=== PATIENT | male | born 1970 | race Caucasian/White ===

== ENCOUNTER 2017-08-11 12:19 | Emergency (ER) | payer BC, SELFPAY ==
[2017-08-11 12:21] VITALS: BP 195/81; PULSE 90; RESP 18; TEMP 36.7; O2SAT 95; BMI 46.5
--- NOTE | 2017-08-11 14:01 | ED.VISSUMM ---
- ER Visit Summary Date of Service: 08/11/17 Chief Complaint: [] Right upper lobe dental pain for a few days believes he cracked the tooth History of Present Illness: The patient is a 47 M [] diabetes that has been stable he indicates he basically thinks he may have cracked a right upper tooth he has some swelling in the gumline adjacent to that tooth, he is scheduled to obtain dental services insurance next week no fever no cough no direct trauma otherwise his health has been very good Physical Examination: [] Signs are unremarkable he does have some dental decay involving the right upper teeth he thinks may be one of the teeth completely fell out of his socket 1 of the teeth looks like he may have a fracture to it there is some minimal swelling to the adjacent outer gumline. The face is unremarkable there is no swelling extra muscles are full the oral cavity is otherwise unremarkable floor the mouth and tongue are normal breathing swallowing normal neck supple no adenopathy the rest exam negative Test Results: [] Emergency Department Course and Treatment: [] he cannot take penicillin he has had clindamycin in the past to be started on clindamycin Napros Humphreys as rescue medicine and he understands that he must follow-up with dental services to get this condition managed Treatment Plan: [] Disposition: [] Stable home Impression: [] Dental decay with gumline infection This note was generated with [employer] dictation software. It may contain incorrect words, spelling, and punctuation that were not noted in review of the chart prior to signing ED Disposition - Plan for ED Patient: Chief Complaint: Dental Referrals: David Patel MD [Primary Care Provider] -
--- NOTE | 2017-08-11 14:03 | ED.DEP ---
ED Disposition - Plan for ED Patient: Chief Complaint: Dental Instructions: ED Cavity Dental, ED Abscess Dental Prescriptions: Hydrocodone Bitart/Apap 5-325 [[place] 5/325] 1 tab PO QHS #5 tab Naproxen [Naprosyn] 500 mg PO BID PRN #20 tab Clindamycin HCl [Cleocin] 300 mg PO Q6H #40 cap Referrals: David Patel MD [Primary Care Provider] -
--- NOTE | 2017-08-11 14:07 | DCINST.ED_ITS ---
ED Disposition - Plan for ED Patient: Chief Complaint: Dental Instructions: ED Cavity Dental, ED Abscess Dental Prescriptions: Hydrocodone Bitart/Apap 5-325 [[place] 5/325] 1 tab PO QHS #5 tab Naproxen [Naprosyn] 500 mg PO BID PRN #20 tab Clindamycin HCl [Cleocin] 300 mg PO Q6H #40 cap Referrals: David Patel MD [Primary Care Provider] -
== END 2017-08-11 14:23 | disposition home or self-care (01) ==
PROVIDERS: Emergency Provider Emergency Medicine; Family Provider Family Medicine; PCP Family Medicine
DX: K02.9 Dental caries, unspecified (principal); K05.10 Chronic gingivitis, plaque induced; E11.9 Type 2 diabetes mellitus without complications; Z79.84 Long term (current) use of oral hypoglycemic drugs
CPT/HCPCS: 99282

== ENCOUNTER 2018-08-26 17:53 | Emergency (ER) | payer OTHER, BC, SELFPAY ==
[2018-08-26 17:54] VITALS: BP 162/103; PULSE 94; RESP 18; TEMP 35.8; O2SAT 97; BMI 45.8
--- NOTE | 2018-08-26 18:02 | ED.RN ---
azar from [facility] contacted by this rn to see pt for workers comp.
--- NOTE | 2018-08-26 18:29 | ED.DCSUM_ITS ---
- ER Visit Summary Date of Service: 08/26/18 Chief Complaint: Left hand laceration History of Present Illness: The patient is a 48 M presenting with laceration to left hand. This occurred earlier today at work. He states he cut his hand on a piece of countertop. No other injury. Last tetanus is unknown. Physical Examination: Vitals are stable. Patient is afebrile. Alert no acute distress. HEENT exam is unremarkable. Neck is supple. Lungs are clear and equal bilaterally. Heart is regular rate and rhythm. Extremities 4 cm left palmar laceration, tendon function intact. Normal cap refill. Skin is warm and dry. No focal neurologic deficit. Remainder of exam is unremarkable. Emergency Department Course and Treatment: Patient was given tetanus IM. Laceration was irrigated with saline. Anesthetized with lidocaine. 5, 5-0 simple sutures were placed. Patient tolerated this well. Advised wound care instructions. He is given Keflex. He is advised follow-up with [facility]. Advised return to ED if worsening complaints. Disposition: Discharge home Impression: Left hand laceration, laceration repair This note was generated with [employer] dictation software. It may contain incorrect words, spelling, and punctuation that were not noted in review of the chart prior to signing ED Disposition - Plan for ED Patient: Instructions: ED Laceration Hand Prescriptions: Cephalexin [Keflex] 500 mg PO Q6 #40 capsule Referrals: [facility] [GROUP OF PHYSICIANS] - David Patel MD [Primary Care Provider] -
--- NOTE | 2018-08-26 18:30 | DCINST.ED_ITS ---
ED Disposition - Plan for ED Patient: Instructions: ED Laceration Hand Referrals: David Patel MD [Primary Care Provider] - [facility] [GROUP OF PHYSICIANS] -
[2018-08-26] MEDS: Diphth,Pertuss(Acell),Tet Vac 0.5 ML Vial IM (19:22)
--- NOTE | 2018-08-26 19:25 | ED.DEP ---
ED Disposition - Plan for ED Patient: Instructions: ED Laceration Hand Prescriptions: Cephalexin [Keflex] 500 mg PO Q6 #40 capsule Referrals: [facility] [GROUP OF PHYSICIANS] - David Patel MD [Primary Care Provider] -
[2018-08-26] MEDS: Cephalexin 250 MG Capsule 500 MG PO (19:33)
== END 2018-08-26 19:43 | disposition home or self-care (01) ==
LOC: ED 18:58
PROVIDERS: Emergency Provider Emergency Medicine; Family Provider Family Medicine; PCP Family Medicine
DX: S61.412A Laceration without foreign body of left hand, initial encounter (principal); Z23 Encounter for immunization; W26.8XXA Contact with other sharp object(s), not elsewhere classified, initial encounter; Y93.89 Activity, other specified; Y92.89 Other specified places as the place of occurrence of the external cause; Y99.0 Civilian activity done for income or pay
CPT/HCPCS: 12002; 90471; 90715; 99284

== ENCOUNTER 2018-08-30 16:47 | Emergency (ER) | payer BC, SELFPAY ==
[2018-08-30 16:48] VITALS: BP 163/96; PULSE 76; RESP 16; TEMP 37.1; O2SAT 96; BMI 56.2
--- NOTE | 2018-08-30 17:40 | RAD_ITS ---
STUDY: X-RAY - RIGHT SHOULDER REASON FOR EXAM: Male, 48 years old. Fall with shoulder pain TECHNIQUE: 4 view(s) of the shoulder. COMPARISON: None. FINDINGS: Normal glenohumeral articulation. Normal acromioclavicular joint. Normal acromion. Normal humeral head and visualized proximal humerus. The soft tissue structures are unremarkable. Normal visualized pulmonary apex. RAD/Shoulder min 2 Views IMPRESSION: Normal x-ray examination of the shoulder. Electronically Signed: Chintan Carney DO at 18:20 EST Tel , Service support ,
--- NOTE | 2018-08-30 18:29 | ED.VISSUMM ---
- ER Visit Summary Date of Service: 08/30/18 Chief Complaint: Right shoulder pain History of Present Illness: The patient is a 48 M presenting with right shoulder pain. Patient states he fell approximately 1 hour prior to arrival. He states he slipped on a hill and fell onto his right side. He complains of right shoulder pain. He did not hit his head or lose consciousness. He did not take any medication prior to arrival. No other complaints. Physical Examination: Vitals are stable. Patient is afebrile. Alert no acute distress. HEENT exam is unremarkable. Neck is nontender. Lungs are clear and equal bilaterally. Heart is regular rate and rhythm. Extremities diffuse right shoulder tenderness with painful range of motion. Neurovascularly intact distally. Skin is warm and dry. No focal neurologic deficit. Remainder of exam is unremarkable. Emergency Department Course and Treatment: X-ray right shoulder shows no acute process. He was given morphine, Zofran IM. He was given a sling and advised range of motion exercises. Advised to follow up with his primary care physician. Advised return to ED if worsening complaints. Disposition: Discharge home Impression: Right shoulder injury This note was generated with [employer] dictation software. It may contain incorrect words, spelling, and punctuation that were not noted in review of the chart prior to signing ED Disposition - Plan for ED Patient: Referrals: David Patel MD [Primary Care Provider] -
--- NOTE | 2018-08-30 18:31 | ED.DEP ---
ED Disposition - Plan for ED Patient: Instructions: ED Sprain Shoulder Prescriptions: Naproxen [Naprosyn] 500 mg PO BID PRN #20 tablet Referrals: David Patel MD [Primary Care Provider] -
[2018-08-30] MEDS: morphine 8 MG/ML Syringe IM (18:50)
[2018-08-30] MEDS: Ondansetron 4 MG/2 ML Vial IM (18:50)
[2018-08-30 19:11] VITALS: BP 162/90; PULSE 72; RESP 19; O2SAT 95
== END 2018-08-30 19:12 | disposition home or self-care (01) ==
LOC: ED 17:47
PROVIDERS: Emergency Provider Emergency Medicine; Family Provider Family Medicine; PCP Family Medicine
DX: S49.91XA Unspecified injury of right shoulder and upper arm, initial encounter (principal); W01.0XXA Fall on same level from slipping, tripping and stumbling without subsequent striking against object, initial encounter; Y93.01 Activity, walking, marching and hiking; Y92.89 Other specified places as the place of occurrence of the external cause; Y99.8 Other external cause status
CPT/HCPCS: 73030; 96372; 99283; J2405

== ENCOUNTER 2020-09-28 21:20 | Emergency (ER) | payer BC, SELFPAY ==
[2018-09-02 17:22] VITALS: BMI 56.2
[2020-09-28 21:21] VITALS: BP 156/85; PULSE 99; RESP 20; TEMP 36.1; O2SAT 95; BMI 43.8
--- NOTE | 2020-09-28 21:56 | ED.DEP ---
ED Disposition - Plan for ED Patient: Instructions: ED Tick Bite, Abx Tx Prescriptions: Doxycycline 100 mg PO BID #28 capsule Transmission Status: Pending to [facility] Referrals: David Patel MD [Primary Care Provider] -
--- NOTE | 2020-09-28 22:06 | ED.VISSUMM ---
- ER Visit Summary Date of Service: 09/28/20 Chief Complaint: Left leg tick bite History of Present Illness: The patient is a 50 M presenting after tick bite to left leg. Patient states he noticed a tick to his left posterior thigh this morning. He is not sure when the tick attached. He was able to remove the tick. He states later he noticed a red ring around the area. He denies fever. Denies other complaints. Physical Examination: Vitals are stable. Patient is afebrile. Alert no acute distress. HEENT exam is unremarkable. Neck is supple. Lungs are clear and equal bilaterally. Heart is regular rate and rhythm. Abdomen is soft nontender Extremities: Left posterior thigh small circular ring erythema, no fluctuance. No palpable foreign body Skin is warm and dry. No focal neurologic deficit. Remainder of exam is unremarkable. Emergency Department Course and Treatment: Patient was given doxycycline p.o. Advised to follow-up with his primary care physician. Advised return to ED for worsening complaints. Disposition: Discharge home Impression: Erythema migrans This note was generated with [employer] dictation software. It may contain incorrect words, spelling, and punctuation that were not noted in review of the chart prior to signing ED Disposition - Plan for ED Patient: Instructions: ED Tick Bite, Abx Tx Prescriptions: Doxycycline 100 mg PO BID #28 capsule Transmission Status: Received by [facility] Referrals: David Patel MD [Primary Care Provider] -
[2020-09-28] MEDS: Doxycycline 100 MG CAPSULE PO (22:08)
== END 2020-09-28 22:12 | disposition home or self-care (01) ==
LOC: ED 22:03
PROVIDERS: Emergency Provider Emergency Medicine; PCP Family Medicine
DX: A26.0 Cutaneous erysipeloid (principal)
CPT/HCPCS: 99283

== ENCOUNTER 2022-03-24 19:35 | Emergency (ER) | payer OTHER, SELFPAY ==
[2022-03-24 19:36] VITALS: BP 155/83; PULSE 87; RESP 16; TEMP 36.6; O2SAT 98; BMI 43.0
--- NOTE | 2022-03-24 20:21 | ED.VIS.DENTA ---
HPI History of Present Illness Chief Complaint: Dental Informant: patient Onset/Context/Timing Onset: Weeks (1.5) Context: Gradual Onset Timing: Continuous Quality: Aching Location: Right upper molars Worsened by: Chewing, biting Relieved by: - (Nothing) Associated Symptoms Assocated Symptom - Dental: jaw swelling, face swelling and cold sensitivity; Negative for fever or hot sensitivity Narrative Narrative: Patient presents with right upper dental pain that has been getting worse over the past 1-1/2 weeks. Patient states it is constantly getting worse. Patient describes it as aching. Patient states it is worse with chewing and biting. Patient admits to some swelling of his jaw and face. Patient also admits to cold sensitivity. Patient denies any fevers or chills. Patient denies any difficulty breathing or difficulty swallowing. Patient states he is in between dentist at this time. PFSH [facility] Medical History Arthritis Chronic neck and back pain Diabetes Knee pain Shoulder pain Tendon pain Home Medications cephalexin 500 mg capsule 500 mg PO Q6 #40 caps 08/26/18 [Rx Last Taken Unknown] naproxen 500 mg tablet 500 mg PO BID PRN #20 tabs 08/30/18 [Rx Last Taken Unknown] doxycycline monohydrate 100 mg capsule 100 mg PO BID #28 CAPSULES 09/28/20 [Rx Last Taken Unknown] clindamycin HCl 300 mg capsule (Cleocin HCl) 300 mg PO Q6H #40 CAPSULES 03/24/22 [Rx Last Taken Unknown] Allergy/AdvReac Type Severity Reaction Status Date / Time Penicillins Allergy Shortness Verified 03/24/22 19:35 of breath Family History (Updated 09/02/18 @ 17:22 by Beth Sutton) Other Diabetes Surgical History H/O right knee surgery Social History Smoking Status: Never smoker ROS ROS ED Constitutional Constitutional ED: Denies chills or fever(s) Eyes Eyes: Denies blurry vision or change in vision ENT ENT ED: Denies rhinorrhea or sore throat Cardiovascular Cardiovascular: Denies chest pain or palpitations Respiratory/Chest Respiratory/Chest: Denies cough or dyspnea Gastrointestinal Gastrointestinal: Denies nausea or vomiting Genitourinary Genitourinary ED: Denies dysuria or hematuria Musculoskeletal Musculoskeletal: Reports neck pain; Denies back pain Integumentary Denies abscess or rash Neurologic Neurologic: Reports headache(s); Denies weakness Allergic/Immunologic Allergic/Immunologic ED: Denies mouth swelling or urticaria EXAM Physical Exam Const Vital Signs: 03/24/22 19:36 Temperature 97.8 F Temperature Source Temporal Pulse Rate 87 Respiratory Rate 16 Blood Pressure 155/83 H Blood Pressure Mean 107 Pulse Ox 98 Oxygen Delivery Method Room Air Positive well nourished and well developed General Appearance ED: well developed and NAD HEENT Mouth ED: Yes oral and palatal mucosa normal Mouth: oral and palatal mucosa normal Teeth and Gingiva: caries Throat: posterior oropharynx normal Neck supple and no JVD General: normal visual inspection; Negative for anterior neck swelling, tenderness or submandibular swelling Neuro oriented x3, CN's II-XII intact bilaterally, moves all extremities, no focal motor deficits and no sensory deficits noted Sensorium / Orientation: alert Motor Exam: strength 5/5 throughout Psych mental status grossly normal MDM MDM MDM Narrative Medical decision making narrative: Patient was given a dose of clindamycin here. Patient was given a prescription for clindamycin. Patient was instructed to follow-up with his dentist in 5 to 7 days. Patient was instructed to return if worse in any way. Patient understood and was agreeable with the plan. All questions were answered. Discharge Plan Triage Chief Complaint: Dental ED Provider: Oliver Cox Dx/Rx/DC Orders Clinical Impression: Infected dental caries, Odontalgia Instructions: ED Dental Pain, ED Dental Cavity Prescriptions: New clindamycin HCl [Cleocin HCl] 300 mg capsule 300 mg PO Q6H Qty: 40 0RF No Action cephalexin 500 MG capsule 500 mg PO Q6 Qty: 40 0RF naproxen 500 MG tablet 500 mg PO BID PRN Qty: 20 0RF doxycycline monohydrate 100 MG capsule 100 mg PO BID Qty: 28 0RF Primary Care Provider: David Patel Referrals: David Patel MD [Primary Care Provider] - 5-7 Days DentistTammy [STAFF PHYSICIAN] - 5-7 Days Disposition Disposition: Home, Self Care
[2022-03-24] MEDS: Clindamycin HCl 150 MG Capsule 300 MG PO (20:31)
== END 2022-03-24 20:33 | disposition home or self-care (01) ==
PROVIDERS: Emergency Provider Emergency Medicine; PCP Family Medicine; Visit Provider Emergency Medicine
DX: K02.9 Dental caries, unspecified (principal); K08.89 Other specified disorders of teeth and supporting structures
CPT/HCPCS: 99282

== ENCOUNTER 2023-10-27 14:47 | Emergency (ER) | payer SELFPAY ==
[2023-10-27] VITALS (11 sets, daily range): BP systolic 119–186; BP diastolic 63–90; PULSE 82–102; RESP 14–26; TEMP 35.8–37.1; O2SAT 94–99; BMI 43.2
--- NOTE | 2023-10-27 15:23 | EDS_ITS ---
HPI History of Present Illness Chief Complaint: Wound Informant: patient Onset/Context/Timing Onset: Weeks (1) Context: Gradual Onset Timing: Continuous Quality: Burning, throbbing Location: Left inguinal area Worsened by: Nothing Relieved by: Warm compresses, Aleve Narrative Narrative: Patient presents with a boil to his left inguinal area that has been getting worse over the past week. Patient states it started draining a few days ago. Patient states the drainage was purulent initially. Patient states that now it is clear and bloody. Patient admits to some subjective fevers. Patient did not have a thermometer to take his temperature. Patient states his pain is improved with Aleve and with warm compresses. Patient describes his pain as burning and throbbing. Patient states nothing makes it worse. PFSH PFSH Medical History (Updated 10/27/23 @ 23:[address] Oliver Cox DO) Arthritis Chronic neck and back pain Diabetes Knee pain Shoulder pain Tendon pain Home Medications cephalexin 500 mg capsule 500 mg PO Q6 #40 caps 08/26/18 [Rx Last Taken Unknown] naproxen 500 mg tablet 500 mg PO BID PRN #20 tabs 08/30/18 [Rx Last Taken Unknown] doxycycline monohydrate 100 mg capsule 100 mg PO BID #28 CAPSULES 09/28/20 [Rx Last Taken Unknown] clindamycin HCl 300 mg capsule (Cleocin HCl) 300 mg PO Q6H #40 CAPSULES 03/24/22 [Rx Last Taken Unknown] Allergy/AdvReac Type Severity Reaction Status Date / Time Penicillins Allergy Shortness Verified 10/27/23 14:51 of breath Family History (Updated 09/02/18 @ 17:22 by Beth Sutton) Other Diabetes Surgical History (Updated 10/27/23 @ 15:[address] Oliver Cox DO) H/O right knee surgery Hx of tonsillectomy Social History Smoking Status: Never smoker ROS ROS ED Constitutional Constitutional ED: Reports fever(s); Denies chills Eyes Eyes: Denies blurry vision or change in vision ENT ENT ED: Denies rhinorrhea or sore throat Cardiovascular Cardiovascular: Denies chest pain or palpitations Respiratory/Chest Respiratory/Chest: Denies cough or dyspnea Gastrointestinal Gastrointestinal: Denies nausea or vomiting Genitourinary Genitourinary ED: Denies dysuria or hematuria Musculoskeletal Musculoskeletal: Denies back pain or neck pain Integumentary Reports abscess; Denies rash Neurologic Neurologic: Reports headache(s); Denies weakness Allergic/Immunologic Allergic/Immunologic ED: Denies mouth swelling or urticaria EXAM Physical Exam Const Vital Signs: 10/27/23 14:48 10/27/23 15:46 10/27/23 16:46 Temperature 96.5 F L 98.1 F Temperature Source Temporal Temporal Pulse Rate 102 H 86 88 Respiratory Rate 17 20 H 21 H Blood Pressure 186/90 H 131/80 H 131/80 H Blood Pressure Mean 122 97 97 Pulse Ox 96 94 94 Oxygen Delivery Method Room Air Room Air Room Air 10/27/23 17:00 10/27/23 18:00 10/27/23 19:00 Temperature 98.2 F 98.1 F 98.0 F Temperature Source Temporal Oral Oral Pulse Rate 88 82 88 Respiratory Rate 20 H 17 18 Blood Pressure 131/71 H 119/64 152/88 H Blood Pressure Mean 91 82 109 Pulse Ox 96 96 95 Oxygen Delivery Method Room Air Room Air Room Air 10/27/23 20:00 10/27/23 21:00 10/27/23 22:00 Temperature 98.6 F 98.8 F 98.8 F Temperature Source Oral Oral Oral Pulse Rate 85 95 86 Respiratory Rate 22 H 22 H 14 Blood Pressure 120/63 123/68 H 122/68 H Blood Pressure Mean 82 86 86 Pulse Ox 96 95 95 Oxygen Delivery Method Room Air Room Air Room Air 10/27/23 22:02 10/27/23 23:00 Temperature 98.8 F 98.2 F Temperature Source Oral Pulse Rate 86 87 Respiratory Rate 26 H 18 Blood Pressure 122/68 H 126/87 H Blood Pressure Mean 86 100 Pulse Ox 95 99 Oxygen Delivery Method Room Air Positive well nourished, well developed and obese General Appearance ED: well developed and NAD Nutritional Appearance: obese HEENT Reports moist mucous membranes Neck supple and no JVD Resp normal respiratory effort and clear to auscultation bilaterally Cardio regular rate and regular rhythm GI non-tender and non-distended Palpation: soft Narrative: There is edema, induration, and erythema over the left inguinal and perineal area. There is an open area that is draining. There is tenderness to palpation over the area. There is some mild edema on the scrotum. Neuro oriented x3, CN's II-XII intact bilaterally and no sensory deficits noted Sensorium / Orientation: alert Motor Exam: strength 5/5 throughout Psych mental status grossly normal MDM MDM MDM Narrative Medical decision making narrative: Differential diagnosis includes Nilton's gangrene, inguinal abscess, cellulitis, perirectal abscess, and necrotizing fasciitis. CT scan of the pelvis will be obtained to assess for abscess and subcutaneous air. CBC will be obtained to assess for leukocytosis and anemia. Basic metabolic profile will be obtained to assess for electrolyte abnormality and renal function. Urinalysis will be obtained to assess for urinary tract infection and hematuria. Blood cultures will be obtained to assess for sepsis. Wound culture will be obtained to assess for wound infection. Urine culture will be obtained to assess for urinary tract infection. Serum lactate will be obtained to assess for sepsis. Lab Data Attestation: I reviewed the patient's lab results. Lab results narrative: CBC was reviewed. There is a mild leukocytosis of 11.8. The remainder is within normal limits. Basic metabolic profile was reviewed. Glucose was elevated to 96. Potassium was slightly low at 3.3. The remainder is within normal limits. Serum lactate was reviewed and was normal at 1.2. Urinalysis was reviewed. Urine ketones were 150. There is no evidence of urinary tract infection or hematuria. Labs: Laboratory Results - last 24 hr 10/27/23 10/27/23 10/27/23 16:00 16:17 20:44 WBC 11.8 H RBC 5.29 Hgb 15.7 Hct 44.6 MCV 84.3 MCH 29.7 MCHC 35.2 RDW Std Deviation 37.8 RDW Coeff of Atul 12.3 Plt Count 289 MPV 9.7 Immature Gran % (Auto) 0.800 Neut % (Auto) 62.1 Lymph % (Auto) 22.9 [place] % (Auto) 11.7 H Eos % (Auto) 1.8 Baso % (Auto) 0.7 Absolute Neuts (auto) 7.3 Absolute Lymphs (auto) 2.70 Nucleated RBC % 0 Sodium 136 Potassium 3.3 L Chloride 104 Carbon Dioxide 22.0 Anion Gap 10 BUN 11 Creatinine 0.61 L Estim Creat Clear Calc 183.35 Est GFR (MDRD) Af Amer 177 Est GFR (MDRD) Non-Af 146 BUN/Creatinine Ratio 18.0 Glucose 296 H Lactic Acid 1.2 Calcium 8.6 Urine Color Yellow Urine Clarity Clear Urine pH 6.0 Ur Specific [place] 1.015 Urine Protein 30 H Urine Glucose (UA) 1000 H Urine Ketones 150 A* Urine Occult Blood Negative Urine Nitrite Negative Urine Bilirubin Negative Urine Urobilinogen 4 H Ur Leukocyte Esterase 25 H Urine RBC 0 SEEN Urine WBC 0-5 SEEN Ur Squamous Epith Cells 0 SEEN Urine Bacteria 0 SEEN Urine Mucus 0 SEEN S.aureus Protein A PCR NEGATIVE MRSA (PCR) Negative Radiography Diagnostic Testing: Clinical Impression(s) from Imaging Studies Abdomen/Pelvis CT 10/27/23 15:35 IMPRESSION: 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 : The above Results were Read Back by Hernandez Esposito MD to Oliver Cox DO, and understanding confirmed on 10/27/2023 18:15:23 (ET). Electronically Signed: Hernandez Esposito MD at 18:05 EDT Reading Location ID and State: [address] [place] [address] Tel , Service support , CT scan of the abdomen and pelvis was obtained. There is evidence of left scrotal and perineal subcutaneous gas consistent with Nilton's gangrene. This was interpreted by the radiologist was also independently reviewed by myself. Treatment and Re-Evaluation :: Patient was given a dose of meropenem, clindamycin, and vancomycin. Patient was given IV fluids. Patient was advised of his findings. Patient was advised of the need for transfer since there is no urology coverage here. Case was discussed with Dr. Navarro at [facility]. He stated that he would be able to do the surgery for this but the patient would need to be admitted to the medical service. Case was discussed with Dr. Steele. He accepted the patient to be transferred to [facility]. Patient understood and was agreeable with the plan. All questions were answered. 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
--- NOTE | 2023-10-27 15:35 | CT_ITS ---
We are attempting to reach an attending provider to discuss findings. An addendum with communication details will be sent when the communication is complete. STUDY: CT ABDOMEN AND PELVIS WITH CONTRAST REASON FOR EXAM: Male, 53 years old. Abscess -- Possible Nilton''s gangrene RADIATION DOSAGE (If Supplied By Facility): CTDIvol = ( 24.04 ) mGy, DLP = ( 2657.37 ) mGycm TECHNIQUE: Transaxial images were obtained from the dome of the diaphragm to the symphysis pubis without oral contrast. IV 100mL Isovue-370 was administered. Sagittal and coronal images were reconstructed. Individualized dose optimization techniques were used for this CT. COMPARISON: None. FINDINGS: The visualized lung bases are unremarkable. The visualized portions of the heart are within normal limits. Normal liver. Cholelithiasis. Normal spleen. Normal pancreas. Normal bilateral adrenal glands. Normal right kidney. Normal left kidney. Normal visualized stomach. Normal small intestine. Normal colon. The appendix is visualized and appears normal. Normal abdominal aorta. Normal inferior vena cava. Normal retroperitoneum. Normal urinary bladder. Bilateral fat-containing inguinal hernias and nonspecific inguinal lymphadenopathy. Subcutaneous stranding and gas left scrotal and perineal. Fat-containing umbilical hernia. Grade 1 spondylolisthesis and spondylolysis at L4-5. 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
[2023-10-27 16:09] LABS: Absolute Neutrophil Count 7.3 X10^3/uL (2.0-7.7); Basophil# 0.08 X10^3/uL; Basophil% 0.7 % (0-1); Eosinophil# 0.21 X10^3/uL; Eosinophils% 1.8 % (0-5); Hematocrit 44.6 % (40-54); Hemoglobin 15.7 g/dL (13.0-16.5); Lymphocyte % 22.9 % (19-41); Mean Corp Hgb Conc 35.2 g/dL (32-36); Mean Corpuscular Hgb 29.7 pg (27.0-32.0); Mean Corpuscular Volume 84.3 fL (80-94); Mean Platelet Vol. 9.7 fl (6.2-12.0); Monocyte# 1.38 X10^3/uL; Monocyte% 11.7 % (0-10); NRBC Flagged by Analyzer 0 % (0-5); Neutrophil # 7.32 X10^3/uL (2.7-7.7); Neutrophil % 62.1 % (47-70); Platelet Count 289 K/mm3 (150-450); RBC Distribution Width CV 12.3 % (11.6-14.6); RBC Distribution Width SD 37.8 fl (35.1-43.9); Red Blood Count 5.29 M/mm3 (4.6-6.2); White Blood Count 11.8 K/mm3 (4.4-11.0)
[2023-10-27] MEDS: 0.9% Normal Saline (1000mL) 1,000 ML 1000 ML IV (16:13)
[2023-10-27 16:23] LABS: Anion Gap 10 (5-15); BUN 11 mg/dL (7-18); Calcium,Total 8.6 mg/dL (8.5-10.1); Chloride 104 mmol/L (98-107); Creatinine, Serum 0.61 mg/dL (0.70-1.30); EST Glomerular Filtration Rate 146 mL/min (>60); Est Glom Filt Rate - Afr Amer 177 mL/min (>60); Estimated Creatinine Clearance 183.35 ml/min; Glucose 296 mg/dL (74-106); Potassium 3.3 mmol/L (3.5-5.1); Sodium Level 136 mmol/L (136-145)
[2023-10-27 16:57] LABS: Lactic Acid 1.2 mmol/L (0.4-1.9)
[2023-10-27] MEDS: Meropenem 1 GM in 0.9% Normal Saline (100mL MB+) 100 ML IV (17:29)
[2023-10-27] MEDS: Clindamycin 900 MG/50 ML BAG 75 MG IV (18:09)
[2023-10-27 18:25] LABS: M R Staph aureus DNA By PCR Negative (Negative); Probe Check PASS; Specimen Processing Control PASS; Staph aureus DNA By PCR NEGATIVE (Negative)
[2023-10-27] MEDS: Vancomycin HCl 2,000 MG in 0.9% Normal Saline (500mL Bag) 500 ML 250 MG IV (19:02)
[2023-10-27 20:48] LABS: Bacteria 0 SEEN /hpf (None Seen); Mucous, Urine 0 SEEN /hpf (<or=2+); Red Blood Cells-Urine 0 SEEN /hpf (0-5); Squamous Epithelial Cells - UA 0 SEEN /hpf (0-5)
[2023-10-27 20:58] LABS: Color, Urine Yellow (Yellow); Glucose, Dipstick 1000 mg/dl (Normal); Leukocyte Esterase-Dipstick 25 /ul (Negative); Nitrite-Dipstick Negative (Negative); Occult Blood-Urine Negative /ul (Negative); Protein-Dipstick 30 mg/dl (Negative); Specific Gravity, Urine 1.015 (1.002-1.030); Urine Bilirubin Dipstick Negative (Negative); Urine Clarity Clear (Clear); Urine Urobilinogen 4 mg/dl (Normal)
[2023-10-27 21:00] LABS: Ketone-Dipstick 150 mg/dl (Negative)
[2023-10-27 21:03] LABS: White Blood Cells 0-5 SEEN /hpf (0-5)
--- NOTE | 2023-10-27 22:03 | ED.RN ---
LORI eport given to RN @ [facility].
--- NOTE | 2023-10-27 22:06 | ED.RN ---
AT 2114 I CALLED PHYSICIANS TO SET UP A RIDE FOR PT GOING TO [facility]. THEY GAVE AN ETA OF 2-3 HOURS, I REQUESTED OUTSOURCE. AT 2124 THEY CALLED BACK SAYING THAT THEY CAN'T DO OUTSOURCE THEMSELVES, ACCORDING TO POLICY THEY HAVE TO ASK A HIGHER UP PERSONNEL IF THEY CAN OUTSOURCE. AT 2134 I CALLED THEM WONDERING WHERE WE WERE WITH THE OUTSOURCE, THEY SAID THEY HAVN'T HEARD FROM THE HIGHER UP IF ANYTHING YET AND THAT THEY WOULD CALL US WITH AN UPDATE. THEN AT 2144 THE MAN I INITIALLY SPOKE WITH TO SET UP THE RIDE CALLED ASKING FOR PROMINENT PT INFO, SUCH THEIR NAME, , AND WEIGHT. I GAVE IT TO HIM AND ALSO ASKED IF WE WERE OUTSOURCING, HE SAID YES. AT 2158 HE CALLED BACK ASKING ABOUT THE PT'S INSURANCE BECAUSE HE WASN'T IN THEIR SYSTEM YET. I INFORMED HIM OF IT. WE ARE STILL WAITING FOR A CALL BACK FOR AN UPDATE.
--- NOTE | 2023-10-27 22:32 | ED.RN ---
CALLED PHYSICIANS BACK AT 2228 REQUESTING AN UPDATE ON THE OUTSOURCE, THEY SAID THAT BECAUSE HE DOESN'T HAVE INSURANCE THAT HE COULDN'T BE OUTSOURCED. THE ETA OF ARRIVAL WAS 45-60 MINUTES PUTTING THEM AT [phone]
[2023-10-28] VITALS: BP 126/63; PULSE 90; RESP 16; TEMP 36.9; O2SAT 94
== END 2023-10-28 00:23 | disposition short-term general hospital (02) ==
PROVIDERS: Emergency Provider Emergency Medicine; PCP Family Medicine; Visit Provider Emergency Medicine
DX: N49.3 Fournier gangrene (principal); E66.01 Morbid (severe) obesity due to excess calories; Z68.41 Body mass index [BMI] 40.0-44.9, adult; E11.9 Type 2 diabetes mellitus without complications; I10 Essential (primary) hypertension
CPT/HCPCS: 74177; 80048; 81001; 83605; 85025; 87040; 87070; 87086; 87205; 87640; 96365; 96366; 96367; 99285; J2185; J7030; J7040; Q9967; A4216